=== PATIENT | male | born 2000 | race Native Hawaiian/Other Pacific Islander ===

== ENCOUNTER 2020-10-20 21:37 | Emergency (ER) | payer OTHER ==
[~2020-10-20] VITALS: Ht 170.2 cm; Wt 68.0 kg
[2020-10-20 21:37] VITALS: TEMP 98.2
[2020-10-20 23:00] VITALS: BP 110/53
[2020-10-21 00:31] LABS: POTASSIUM 2.8 mmol/L (3.6-5.2)
[2020-10-21 01:45] LABS: PLATELET COUNT 365 K/uL (142-355)
== END 2020-10-21 00:40 | disposition home or self-care (01) ==
LOC: ED 21:37 → EDBD 21:37 → ED 10-21 00:40
PROVIDERS: Emergency Medicine
DX: S40.212A Abrasion of left shoulder, initial encounter (principal); S40.211A Abrasion of right shoulder, initial encounter; F10.129 Alcohol abuse with intoxication, unspecified; Y90.8 Blood alcohol level of 240 mg/100 ml or more; V59.3XXA Occupant (driver) (passenger) of pick-up truck or van injured in unspecified nontraffic accident, initial encounter; Y92.410 Unspecified street and highway as the place of occurrence of the external cause
CPT/HCPCS: 80053; 80320; 85027; 96374; 99284; J2060